=== PATIENT | female | born 1985 | race Caucasian/White ===

== ENCOUNTER 2018-05-10 03:21 | Emergency (ER) | payer OTHER ==
[2018-05-10 03:27] VITALS: BP 116/74; PULSE 94; TEMP 97.7; BMI 21.5
--- NOTE | 2018-05-10 03:45 | PDOC ---
History of Present Illness - General Chief Complaint: Pain, Acute Stated Complaint: ANXIETY,C/O FEAR/SLIGHT PAIN Time Seen by Provider: 05/10/18 03:36 - History of Present Illness Initial Comments: 05/10/18 03:45 This 32-year-old woman with a history of anxiety but no other significant medical issues is brought in by ambulance with episode of right-sided chest pain and rapid heartbeat after awakening earlier . Patient is 8 months ; her daughter had awakened earlier and patient was able to return to sleep. She states that she may have been having a nightmare but approximately one hour prior to presentation she awakened suddenly with right-sided chest pressure ("feeling like a claw") which lasted approximately 1 minute. She subsequently was nauseated and sweaty briefly. Patient had no shortness of breath or cough. She denies recent lower extremity edema or pain. Earlier the evening, the patient had exercised at the gym including upper body resistance exercises using weights. No recent febrile illness or vomiting/diarrhea. patient states that she has had previous episodes of anxiety but never felt chest pain previously. No significant risk factors for coronary artery disease (nonsmoker, no HTN, no DM, no significant cardiac history in her family, no HLD No history of thromboembolic disease in the patient or her family; she has not had any recent long trips or other immobility; no lower extremity edema or pain Past History - Past Medical History Allergies/Adverse Reactions: Allergies Allergy/AdvReac Type Severity Reaction Status Date / Time diphenhydramine AdvReac Verified 05/10/18 03:23 [From Benadryl] Home Medications: Ambulatory Orders NK [No Known Home Medication] 05/10/18 COPD: No Other medical history: ANXIETY - Suicide/Smoking/Psychosocial Hx Smoking History: Never smoked Have you smoked in the past 12 months: No Information on smoking cessation initiated: No Hx Alcohol Use: No Drug/Substance Use Hx: No Substance Use Type: None Review of Systems - Review of Systems Able to Perform ROS?: Yes Comments:: 12 point review of systems is negative except for what is noted in the history of present illness *Physical Exam - Vital Signs Last Vital Signs Temp Pulse Resp BP Pulse Ox 97.7 F 94 H 18 116/74 100 05/10/18 03:24 05/10/18 03:24 05/10/18 03:24 05/10/18 03:24 05/10/18 03:24 - Physical Exam Comments: GENERAL: Adult female, alert and oriented 3, anxious but in no acute distress; speaking in full sentences; heart rate 96/minute , pulse ox 100% or a HEAD: Normal with no signs of trauma. EYES: PERRLA, EOMI, sclera anicteric, conjunctiva clear. ENT: Ears normal, nares patent, oropharynx clear without exudates. Moist mucous membranes. NECK: Normal range of motion, supple without lymphadenopathy, JVD, or masses. LUNGS: Breath sounds equal, clear to auscultation bilaterally. No wheezes, and no crackles. HEART:Regular rate and rhythm, normal S1 and S2 without murmur, rub or gallop. ABDOMEN:.normal bowel sounds No guarding,tenderness or rebound.No masses No distention. EXTREMITIES: Normal range of motion, no edema. No clubbing or cyanosis. No erythema, or tenderness. NEUROLOGICAL: Cranial nerves II through XII grossly intact. Normal speech. No focal neurological deficits. MUSCULOSKELETAL: Back non-tender to palpation, no CVA tenderness SKIN: Warm, Dry, normal turgor, no rashes or lesions noted. 12-lead electrocardiogram is performed and interpreted by me: Normal sinus rhythm at 96 bpm axis, wave forms and intervals are all normal. No evidence of acute ST or T-wave abnormalities Medical Decision Making - Medical Decision Making This 32-year-old woman with a history of anxiety but no other significant medical issues presents with episode of awakening right-sided chest pain and subsequent anxiety/panic attack. Other than residual anxiety and tachycardia, patient has no symptoms on presentation. She has no significant risk factors for coronary artery disease or thromboembolic event. Exam and EKG as noted. As the patient had done upper body resistance exercises earlier in the day ( patient describes using free weights for arm/shoulder abduction&adduction), brief episode of right anterior chest discomfort may have been muscle strain/ spasm. Patient reassured that she is not having any acute cardiac event. Since she is breast-feeding, she is hesitant to take any medication. Lorazepam is short acting and is considered safe, especially one dose, during breast-feeding. Patient and her agree that it is important for her to relax and get some rest. The patient prefers not to breast-feed for several hours after the dose of Ativan. Patient agrees to 1 milligram Ativan by mouth now. Patient is referred back to her general doctor for reevaluation within 1 week. She also asked for referral to a cardiology group because she will feel reassured if she has a cardiology workup including echocardiogram, etc. Bina hastings is admission liaison and their referral information will be provided for her. *DC/Admit/Observation/Transfer Diagnosis at time of Disposition: Anxiety, Atypical chest pain - Discharge Dispostion Disposition: HOME Condition at time of disposition: Stable - Referrals Referrals: Gallo Curran MD [Staff Physician] - - Patient Instructions Printed Discharge Instructions: DI for Atypical Chest Pain, DI for Anxiety -- Adult Additional Instructions: Rest; drink plenty fluids no for the next 8 hours Avoid strenuous activity involving upper body for the next few days Return to ER if you have any further chest pain/palpitations/shortness of breath Follow-up with your general doctor within one week Consider cardiology follow-up, as discussed, within the next 1-2 weeks (Dr. Bina hastings) - Post Discharge Activity
[2018-05-10] MEDS ORDERED: LORazepam 1 MG TABLET PO ONE (04:22)
[2018-05-10] MEDS ORDERED: LORazepam 0.5 MG TABLET ONE (04:23)
--- NOTE | 2018-05-10 15:14 | EKG ---
Test Reason : Blood Pressure : / mmHG Vent. Rate : 096 BPM Atrial Rate : 096 BPM P-R Int : 150 ms QRS Dur : 068 ms QT Int : 360 ms P-R-T Axes : 046 022 022 degrees QTc Int : 454 ms POOR DATA QUALITY, INTERPRETATION MAY BE ADVERSELY AFFECTED NORMAL SINUS RHYTHM WITH SINUS ARRHYTHMIA NORMAL ECG NO PREVIOUS ECGS AVAILABLE Confirmed by Mjaor Regalado ([id number]) on 05/10/2018 3:14:02 PM Referred By: MD JACOBS Confirmed By:Major Regalado
== END 2018-05-10 04:35 | disposition home or self-care (01) ==
LOC: FER 03:21
DX: R07.89 Other chest pain (principal); F41.9 Anxiety disorder, unspecified
CPT/HCPCS: 93005; 99281-25